=== PATIENT | male | born 1975 | race Caucasian/White ===

== ENCOUNTER 2022-11-11 08:31 | Emergency (ER) | payer BC, SELFPAY ==
[2022-11-11] VITALS (9 sets, daily range): BP systolic 118–152; BP diastolic 71–80; PULSE 39–59; RESP 9–21; TEMP 36.7; O2SAT 98; BMI 33.7
--- NOTE | 2022-11-11 08:51 | XR_ITS ---
The [address] [address] Patient Name: DENG ADDISON MRN: [id number] date: 1975 Sex: M Assigned Patient Location: ER Current Patient Location: ER Accession/Order Number: [id number] Exam Date: 11/11/2022 08:55 Report Date: 11/11/2022 09:12 At the request of: KARL CARRILLO Procedure: XR chest 1V EXAM: XR chest 1V HISTORY: . SOB . COMPARISON: None. TECHNIQUE: Single view of the chest FINDINGS: Heart and vascularity are unremarkable. Lungs are free of focal infiltrates. EKG leads overlie the chest. XR/XR chest 1V IMPRESSION: No Acute heart or lung disease identified. Electronically authenticated by: DRE CROCKETT Date: 11/11/2022 09:12
--- NOTE | 2022-11-11 08:51 | ECG_ITS ---
The [facility] Test Date: 2022-11-11 Pat Name: DENG ADDISON Department: Room: - Gender: Male Facial Operator: : 1975 Requested By: ALEXEI HAYES Order Number: [id number] Reading MD: SESAR JIMENEZ Measurements Intervals [place] Rate: 44 P: 47 MO: 186 QRS: 65 QRSD: 86 T: 32 QT: 420 QTc: 369 Interpretive Statements 1130 Sinus bradycardia 9140 abnormal rhythm ECG No previous ECG available for comparison Electronically Signed On 11-12-2022 5:56:33 EDT by SESAR JIMENEZ
--- NOTE | 2022-11-11 08:52 | ED.GENADUL1 ---
HPI - General Adult General Chief complaint: Weakness Stated complaint: GENERAL WEAKNESS Time Seen by Provider: 11/11/22 08:44 Source: patient Mode of arrival: walk-in History of Present Illness HPI narrative: 47-year-old male presents to the emergency department for complaints of lower heart rate during the day. He states he goes into the 40s. He's been having this problem for 4-6 months but hasn't spoken to his physician about it. No syncope or presyncope. No fever cough or vomiting except he vomited a few days ago. He is on metoprolol. Symptoms are intermittent. No chest pain. Related Data Home Medications Medication Instructions Recorded Confirmed amlodipine 10 mg tablet 10 mg PO DAILY 11/11/22 11/11/22 atorvastatin 80 mg tablet 80 mg PO DAILY 11/11/22 11/11/22 losartan 100 mg tablet 100 mg PO DAILY 11/11/22 11/11/22 metoprolol succinate 50 mg 50 mg PO DAILY 11/11/22 11/11/22 tablet,extended release 24 hr Allergies Allergy/AdvReac Type Severity Reaction Status Date / Time No Known Drug Allergies Allergy Verified 11/11/22 08:42 Review of Systems ROS Narrative A ten point review of systems is negative except as noted above. Exam Narrative Exam Narrative: Nurses note and vital signs reviewed and patient is not hypoxic. General: The patient appears well and in no apparent distress. Patient is resting comfortably on cart. Skin: Warm, dry, no pallor noted. There is no rash noted. Head: Normocephalic, atraumatic Eye: Normal conjunctiva, no drainage Ears, Nose, Mouth, and Throat: oral mucosa is moist. Nares patent. Cardiovascular: Regular Rate and Rhythm, bradycardic Respiratory: Patient is in no distress, no accessory muscle use, lungs are clear to auscultation, no wheezing, rales or rhonchi Back: non-tender GI: soft and nontender Musculoskeletal: The patient has no evidence of calf tenderness, no pitting edema, symmetrical pulses noted bilaterally Neurological: A&O, normal speech Psychiatric: Cooperative Constitutional Vital Signs, click to edit/add: Last Vital Signs Temp 98.0 F 11/11/22 08:39 Pulse 59 L 11/11/22 08:39 Resp 20 11/11/22 08:39 BP 152/80 H 11/11/22 08:39 Pulse Ox 98 11/11/22 08:39 O2 Del Method Room Air 11/11/22 08:39 Course Vital Signs Vital signs: Vital Signs Temperature 98.0 F 11/11/22 08:39 Pulse Rate 59 L 11/11/22 08:39 Respiratory Rate 20 11/11/22 08:39 Blood Pressure 152/80 H 11/11/22 08:39 Pulse Oximetry 98 11/11/22 08:39 Oxygen Delivery Method Room Air 11/11/22 08:39 Temperature 98.0 F 11/11/22 08:39 Pulse Rate 59 L 11/11/22 08:39 Respiratory Rate 20 11/11/22 08:39 Blood Pressure 152/80 H 11/11/22 08:39 Pulse Oximetry 98 11/11/22 08:39 Oxygen Delivery Method Room Air 11/11/22 08:39 Medical Decision Making MDM Narrative Medical decision making narrative: laboratory analysis is negative. Heart rate is in the 40s. He will discontinue the metoprolol and follow up promptly with his PCP. Treatment diagnosis and follow-up were discussed with the patient. My impression is that the bradycardia secondary to the metoprolol. Differential Diagnosis Differential Diagnosis: bradycardia secondary to beta olena, electrolyte imbalance, heart block Lab Data Lab results reviewed: Yes I reviewed the patient's lab results Labs: Lab Results 11/11/22 Range/Units 09:05 WBC 8.8 (4.0-11.0) 10^3/uL RBC 3.97 L (4.70-6.10) 10^6/uL Hgb 12.6 L (14.0-18.0) g/dL Hct 38.0 L (42.0-54.0) % MCV 95.7 H (80.0-94.0) fL MCH 31.7 (25.9-34.0) pg MCHC 33.2 (29.9-35.2) g/dL RDW 13.3 (11.0-15.0) % Plt Count 294 (150-450) 10^3/uL MPV 10.4 (9.5-13.5) fL Neut % (Auto) 57.0 (43.0-75.0) % Lymph % (Auto) 31.4 (20.5-60.0) % [place] % (Auto) 10.0 (1.7-12.0) % Eos % (Auto) 0.8 L (0.9-7.0) % Baso % (Auto) 0.5 (0.2-2.0) % Neut # (Auto) 5.0 (1.4-6.5) 10^3/uL Lymph # (Auto) 2.8 (1.2-3.8) 10^3/uL [place] # (Auto) 0.9 H (0.3-0.8) 10^3/uL Eos # (Auto) 0.1 (0.0-0.7) 10^3/uL Baso # (Auto) 0.0 (0.0-0.1) 10^3/uL Abs Immat Gran (auto) 0.03 (0.00-0.03) 10^3/uL Imm/Tot Granulo (auto) 0.3 (0.0-0.5) % Sodium 139 (136-145) mmol/L Potassium 4.1 (3.5-5.1) mmol/L Chloride 105 (98-107) mmol/L Carbon Dioxide 27.0 (21.0-32.0) mmol/L Anion Gap 11.1 BUN 10.0 (7.0-18.0) mg/dL Creatinine 0.76 (0.70-1.30) mg/dL Est GFR ( Amer) >60 (>=60) Est GFR (Non-Af Amer) >60 (>=60) BUN/Creatinine Ratio 13.2 Glucose 100 (74-106) mg/dL Calcium 9.4 (8.5-10.1) mg/dL TSH 0.753 (0.358-3.740) uIU/mL ECG Data Attestation: I personally reviewed and interpreted this ECG as follows: (sinus bradycardia) Discharge Plan Discharge Chief Complaint: Weakness Clinical Impression: Bradycardia, sinus Patient Disposition: Home, Self-Care Time of Disposition Decision: 10:03 Condition: Good Mode of Transportation: Private Vehicle Prescriptions / Home Meds: No Action amlodipine 10 mg tablet 10 mg PO DAILY atorvastatin 80 mg tablet 80 mg PO DAILY losartan 100 mg tablet 100 mg PO DAILY metoprolol succinate 50 mg tablet extended release 24 hr 50 mg PO DAILY Instructions: Bradycardia (ED) Additional Instructions: discontinue metoprolol Follow-up within a week with your PCP Stand Alone Forms: Portal Instructions Referrals: ALEXEI HAYES [Primary Care Provider] - 1 week
[2022-11-11 09:38] LABS: Basophils Percent Auto 0.5 % (0.2-2.0); Eosinophils Absolute Auto 0.1 10^3/uL (0.0-0.7); Eosinophils Percent Auto 0.8 % (0.9-7.0); Hemoglobin 12.6 g/dL (14.0-18.0); Immature Granulocytes Abs Auto 0.03 10^3/uL (0.00-0.03); Immature Granulocytes Pct Auto 0.3 % (0.0-0.5); Lymphocytes Absolute Auto 2.8 10^3/uL (1.2-3.8); Lymphocytes Percent Auto 31.4 % (20.5-60.0); Mean Corpuscular HGB Conc 33.2 g/dL (29.9-35.2); Mean Corpuscular Hemoglobin 31.7 pg (25.9-34.0); Mean Corpuscular Volume 95.7 fL (80.0-94.0); Mean Platelet Volume 10.4 fL (9.5-13.5); Monocytes Absolute Auto 0.9 10^3/uL (0.3-0.8); Platelet Count 294 10^3/uL (150-450); Red Blood Count 3.97 10^6/uL (4.70-6.10); Red Cell Distribution Width 13.3 % (11.0-15.0); White Blood Count 8.8 10^3/uL (4.0-11.0)
[2022-11-11 09:41] LABS: Anion Gap 11.1; BUN Creatinine Ratio 13.2; Calcium 9.4 mg/dL (8.5-10.1); Chloride 105 mmol/L (98-107); Estimated GFR (African America >60 (>=60); Estimated GFR (Non-African Ame >60 (>=60); Glucose 100 mg/dL (74-106); Potassium 4.1 mmol/L (3.5-5.1); Sodium 139 mmol/L (136-145)
[2022-11-11 09:53] LABS: Thyroid Stimulating Hormone 0.753 uIU/mL (0.358-3.740)
== END 2022-11-11 10:15 | disposition home or self-care (01) ==
PROVIDERS: Emergency Provider Emergency Medicine; PCP Family Medicine
DX: R00.1 Bradycardia, unspecified (principal); Z79.899 Other long term (current) drug therapy
CPT/HCPCS: 36415; 71045; 80048; 84443; 85025; 93005; 99285

== ENCOUNTER 2024-01-03 06:48 | Outpatient (OUT) | payer BC, SELFPAY ==
[2024-01-03 10:34] LABS: Alanine Aminotransferase 35 U/L (16-63); Albumin Globulin Ratio 1.2; Albumin Level 4.1 g/dL (3.4-5.0); Alkaline Phosphatase 62 U/L (46-116); Anion Gap 13.4; Aspartate Amino Transferase 20 U/L (15-37); BUN Creatinine Ratio 18.2; Bilirubin Total 0.6 mg/dL (0.2-1.0); Calcium 9.4 mg/dL (8.5-10.1); Carbon Dioxide 27.3 mmol/L (21.0-32.0); Chloride 106 mmol/L (98-107); Chol HDL Ratio 2.8; Cholesterol 138 mg/dL (<=200); Estimated GFR (African America >60 (>=60 mL/min/1.73m^2); Estimated GFR (Non-African Ame >60 (>=60 mL/min/1.73m^2); Globulin 3.3 g/dL; Glucose 101 mg/dL (74-106); HDL Cholesterol 49 mg/dL (40-60); Potassium 4.7 mmol/L (3.5-5.1); Sodium 142 mmol/L (136-145); Total Protein 7.4 g/dL (6.4-8.2); Triglycerides 100 mg/dL (<=150)
== END 2024-01-03 06:49 | disposition home or self-care (01) ==
LOC: LAB 06:50
PROVIDERS: PCP Family Medicine; Visit Provider Family Medicine
DX: E78.2 Mixed hyperlipidemia (principal); I12.9 Hypertensive chronic kidney disease with stage 1 through stage 4 chronic kidney disease, or unspecified chronic kidney disease; Z13.1 Encounter for screening for diabetes mellitus
CPT/HCPCS: 36415; 80053; 80061